=== PATIENT | male | born 1935 | race Caucasian/White ===

== ENCOUNTER 2017-11-07 04:14 | Emergency (ER) | payer MEDICARE, BC ==
[2017-11-07 04:26] VITALS: BP 134/69
--- NOTE | 2017-11-07 04:55 | EDM.PDOC ---
ED HPI GENERAL MEDICAL PROBLEM - General Chief Complaint: Neuro Symptoms/Deficits Stated Complaint: IN BY AMBULANCE-POSSIBLE STROKE Time Seen by Provider: 11/07/17 04:25 Source of Information: Reports: Patient, EMS, Family History Limitations: Reports: Altered Mental Status - History of Present Illness INITIAL COMMENTS - FREE TEXT/NARRATIVE: ED via [facility] with "possible stroke" EMS note slight weakness on right, no facial droop. reports past 2 nights patient c/o feeling warm, has had cough , tonight "stumbled" to bed at 1130 which not usual, Got up around 2 and fell, no c/o pain but attempted for 2 hours to get up off floor and unable, described just generalized weakness, did not note one sided, no difficulty with speech. baseline confusion unchanged. 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 Similar symptoms at that time with CVA, pneumonia and influenza. Only medication Lorazepam, last taken at 2300. - Related Data Allergies Allergy/AdvReac Type Severity Reaction Status Date / Time No Known Allergies Allergy Verified 11/07/17 04:33 Home Meds: Home Meds LORazepam 0.5 mg PO ASDIRECTED 05/06/16 [History] Past Medical History - Past Health History Medical/Surgical History: Denies Medical/Surgical History Cardiovascular History: Reports: High Cholesterol Gastrointestinal History: Reports: GERD Genitourinary History: Reports: Chronic Renal Insuffiency, Other (See Below) Other Genitourinary History: erectile dysfunction Musculoskeletal History: Reports: Arthritis, Other (See Below) Other Musculoskeletal History: bone metabolism disorder Neurological History: Reports: CVA Psychiatric History: Reports: Anxiety, Other (See Below) Other Psychiatric History: insomnia Dermatologic History: Reports: Other (See Below) Other Dermatologic History: rosacea - Past Surgical History HEENT Surgical History: Reports: Other (See Below) GI Surgical History: Reports: Hernia, Inguinal Musculoskeletal Surgical History: Reports: Other (See Below) Social & Family History - Family History Family Medical History: Noncontributory - Tobacco Use Smoking Status *Q: Former Smoker Used Tobacco, but Quit: Yes Month/Year Tobacco Last Used: 15 - Caffeine Use Caffeine Use: Reports: Coffee, Soda - Recreational Drug Use Recreational Drug Use: No - Living Situation & Occupation Living situation: Reports: , with Spouse Occupation: Retired ED ROS GENERAL - Review of Systems Review Of Systems: ROS reveals no pertinent complaints other than HPI. ED EXAM, NEURO - Physical Exam Exam: See Below Exam Limited By: No Limitations General Appearance: Alert, No Apparent Distress Eye Exam: Bilateral Eye: EOMI (4) Ears: Normal External Exam, Hearing Grossly Normal Nose: Normal Inspection Throat/Mouth: Normal Inspection, Normal Lips, No Airway Compromise Head Exam: Atraumatic, Normocephalic Neck: Normal Inspection, Non-Tender, Full Range of Motion Respiratory/Chest: No Respiratory Distress, Lungs Clear, Normal Breath Sounds Cardiovascular: Normal Peripheral Pulses, Regular Rate, Rhythm. No: No Edema (1 = nonpitting bilateral) GI/Abdominal: Normal Bowel Sounds, Soft, Non-Tender Neurological: Alert, Normal Dorsiflexion. No: Oriented x 3, Abnormal Finger to Nose Extremities: Pedal Edema Psychiatric: Flat Affect Skin Exam: Warm, Dry, Intact, Normal Color EKG INTERPRETATION Rhythm: NSR Course - Vital Signs Last Recorded V/S: Last Vital Signs Temp 97.3 F 11/07/17 04:24 Pulse 94 11/07/17 04:24 Resp 21 H 11/07/17 04:24 BP 134/69 11/07/17 04:24 Pulse Ox 93 L 11/07/17 05:08 - Orders/Labs/Meds Orders: Active Orders 24 hr Category Date Time Status EKG Documentation Completion [RC] URGENT Care 11/07/17 03:59 Active CULTURE BLOOD [BC] Stat Lab 11/07/17 04:35 Received CULTURE BLOOD [BC] Stat Lab 11/07/17 05:14 Results UA W/MICROSCOPIC [URIN] Stat Lab 11/07/17 03:59 Ordered Heparin Sodium/0.45% NaCl [Heparin 25,000 Units in 1/2 Med 11/07/17 05:15 Active NS 500 ML] 25,000 units in 500 ml IV TITRATE Sodium Chloride 0.9% [Normal Saline] 1,000 ml Med 11/07/17 05:21 Ordered IV .BOLUS Blood Culture x2 Reflex Set [OM.PC] Stat Oth 11/07/17 04:01 Ordered Medication Orders Heparin Sodium/Sodium Chloride (Heparin 25,000 Units In 1/2 Ns 500 Ml) 25,000 units in 500 mls @ 19.595 mls/hr IV TITRATE FERN; Protocol Last Admin: 11/07/17 05:23 Dose: 12 units/kg/hr, 19.595 mls/hr Sodium Chloride (Normal Saline) 1,000 mls @ 250 mls/hr IV .BOLUS ONE Stop: 11/07/17 09:20 Last Admin: 11/07/17 05:26 Dose: 250 mls/hr Labs: Laboratory Tests 11/07/17 11/07/17 11/07/17 Range/Units 04:35 04:35 04:35 WBC 9.7 (5.0-10.0) 10^3/uL RBC 4.88 (4.6-6.2) 10^6/uL Hgb 14.6 (14.0-18.0) g/dL Hct 44.2 (40.0-54.0) % MCV 90.6 (80-100) fL MCH 29.9 (27.0-34.0) pg MCHC 33.0 (33.0-35.0) g/dL Plt Count 154 (150-450) 10^3/uL Neut % (Auto) 70.5 (42.2-75.2) % Lymph % (Auto) 14.1 L (20.5-50.1) % [place] % (Auto) 14.5 H (2-8) % Eos % (Auto) 0.7 L (1.0-3.0) % Baso % (Auto) 0.2 (0.0-1.0) % PT 10.8 (9.0-12.0) SEC INR 1.1 (0.9-1.2) Sodium 137 (135-145) mmol/L Potassium 3.8 (3.6-5.0) mmol/L Chloride 104 (101-111) mmol/L Carbon Dioxide 26.0 (21.0-31.0) mmol/L Anion Gap 10.8 BUN 24 H (7-18) mg/dL Creatinine 1.7 H (0.6-1.3) mg/dL Est Cr Clr Drug Dosing TNP Estimated GFR (MDRD) 39 BUN/Creatinine Ratio 14.11 Glucose 113 H (74-105) mg/dL Lactic Acid (0.5-2.2) mmol/L Calcium 8.6 (8.4-10.2) mg/dl Total Bilirubin 2.5 H (0.2-1.0) mg/dL AST 41 (10-42) IU/L ALT 15 (10-60) IU/L Alkaline Phosphatase 64 (42-121) IU/L Creatine Kinase 2025 H (26-174) IU/L Troponin I 2.44 H* (0.00-0.02) ng/ml B-Natriuretic Peptide 170 H (0-100) pg/ml Total Protein 7.4 (6.7-8.2) g/dl Albumin 3.5 (3.2-5.5) g/dl Globulin 3.9 Albumin/Globulin Ratio 0.90 Amylase 78 (28-100) U/L Lipase 26 (22-51) U/L 11/07/17 Range/Units 04:35 WBC (5.0-10.0) 10^3/uL RBC (4.6-6.2) 10^6/uL Hgb (14.0-18.0) g/dL Hct (40.0-54.0) % MCV (80-100) fL MCH (27.0-34.0) pg MCHC (33.0-35.0) g/dL Plt Count (150-450) 10^3/uL Neut % (Auto) (42.2-75.2) % Lymph % (Auto) (20.5-50.1) % [place] % (Auto) (2-8) % Eos % (Auto) (1.0-3.0) % Baso % (Auto) (0.0-1.0) % PT (9.0-12.0) SEC INR (0.9-1.2) Sodium (135-145) mmol/L Potassium (3.6-5.0) mmol/L Chloride (101-111) mmol/L Carbon Dioxide (21.0-31.0) mmol/L Anion Gap BUN (7-18) mg/dL Creatinine (0.6-1.3) mg/dL Est Cr Clr Drug Dosing Estimated GFR (MDRD) BUN/Creatinine Ratio Glucose (74-105) mg/dL Lactic Acid 1.1 (0.5-2.2) mmol/L Calcium (8.4-10.2) mg/dl Total Bilirubin (0.2-1.0) mg/dL AST (10-42) IU/L ALT (10-60) IU/L Alkaline Phosphatase (42-121) IU/L Creatine Kinase (26-174) IU/L Troponin I (0.00-0.02) ng/ml B-Natriuretic Peptide (0-100) pg/ml Total Protein (6.7-8.2) g/dl Albumin (3.2-5.5) g/dl Globulin Albumin/Globulin Ratio Amylase (28-100) U/L Lipase (22-51) U/L Meds: Medications Generic Name Dose Route Start Last Admin Trade Name Freq PRN Reason Stop Dose Admin Heparin Sodium/Sodium Chloride 25,000 units in 500 mls @ 19.595 mls/hr 05:15 11/07/17 05:23 Heparin 25,000 Units In 1/2 Ns 500 Ml IV 12 units/kg/hr TITRATE FERN 19.595 mls/hr Administration Protocol 12 UNITS/KG/HR Sodium Chloride 1,000 mls @ 250 mls/hr 11/07/17 05:21 11/07/17 05:26 Normal Saline IV 11/07/17 09:20 250 mls/hr .BOLUS ONE Administration Discontinued Medications Generic Name Dose Route Start Last Admin Trade Name Freq PRN Reason Stop Dose Admin Aspirin 324 mg 11/07/17 05:14 11/07/17 05:22 Aspirin PO 11/07/17 05:15 324 mg ONETIME ONE Administration Heparin Sodium (Porcine) 4,000 units 11/07/17 05:14 11/07/17 05:25 Heparin Sodium IVPUSH 11/07/17 05:15 4,000 units .BOLUS ONE Administration - Radiology Interpretation Free Text/Narrative:: CXR; COPD Head: no acute process, 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 Rebeka Hinkle accepting of patient in transfer. Tx [facility] in stable condition. notes she and patient desire full code status with intubation NIH score 1 on admit and discharge. Departure - Departure Time of Disposition: 05:41 Disposition: DC/Tfer to Acute Hospital 02 Condition: Fair Clinical Impression: Weakness, Elevated troponin Rhabdomyolysis Qualifiers: Rhabdomyolysis type: non-traumatic Qualified Code(s): M62.82 - Rhabdomyolysis - Discharge Information Forms: ED Department Discharge - My Orders Last 24 Hours: My Active Orders 11/07/17 03:59 EKG Documentation Completion [RC] URGENT UA W/MICROSCOPIC [URIN] Stat 11/07/17 04:01 Blood Culture x2 Reflex Set [OM.PC] Stat 11/07/17 04:35 CULTURE BLOOD [BC] Stat 11/07/17 05:14 CULTURE BLOOD [BC] Stat 11/07/17 05:15 Heparin Sodium/0.45% NaCl [Heparin 25,000 Units in 1/2 NS 500 ML] 25,000 units in 500 ml IV TITRATE 11/07/17 05:21 Sodium Chloride 0.9% [Normal Saline] 1,000 ml IV .BOLUS - Assessment/Plan Last 24 Hours: My Active Orders 11/07/17 03:59 EKG Documentation Completion [RC] URGENT UA W/MICROSCOPIC [URIN] Stat 11/07/17 04:01 Blood Culture x2 Reflex Set [OM.PC] Stat 11/07/17 04:35 CULTURE BLOOD [BC] Stat 11/07/17 05:14 CULTURE BLOOD [BC] Stat 11/07/17 05:15 Heparin Sodium/0.45% NaCl [Heparin 25,000 Units in 1/2 NS 500 ML] 25,000 units in 500 ml IV TITRATE 11/07/17 05:21 Sodium Chloride 0.9% [Normal Saline] 1,000 ml IV .BOLUS
[2017-11-07 05:13] LABS: CHLORIDE,CL 104 mmol/L (101-111); SODIUM,NA 137 mmol/L (135-145)
[2017-11-07] MEDS ORDERED: Heparin Sodium 5,000 Units/ML Vial IVPUSH ONE (05:14)
[2017-11-07] MEDS ORDERED: Aspirin 81 MG Tab.Chew PO ONE (05:14)
[2017-11-07] MEDS ORDERED: Heparin Sodium/0.45% NaCl 25,000 UNITS/500 ML BAG IV SCH (05:15)
[2017-11-07] MEDS ORDERED: Sodium Chloride 0.9% 1,000 ML IV ONE (05:21)
--- NOTE | 2017-11-08 07:23 | EKG ---
11/07/2017- JHOANA SEN - FINDINGS: EKG, per my reading, shows sinus rhythm at the rate of 91. MODL /[id number]
== END 2017-11-07 06:00 ==
LOC: DL.ED 04:14
DX: M62.82 Rhabdomyolysis (principal); R53.1 Weakness; R79.89 Other specified abnormal findings of blood chemistry; N18.9 Chronic kidney disease, unspecified; Z87.891 Personal history of nicotine dependence
CPT/HCPCS: 36415; 70450; 71045; 72125; 80053; 82150; 82550; 83605; 83690; 83880; 84484; 85025; 85610; 87040; 87804; 93005; 93010; 96365; 99285; A9270; J1644; J7030